=== PATIENT | female | born 1950 | race Caucasian/White ===

== ENCOUNTER → 2024-11-06 10:40 | Outpatient (REF) | payer MEDICARE, OTHER, SELFPAY | LOC: HWRAD 10:40 | PROVIDERS: ATTENDING PHYSICIAN Family Medicine | DX: R05.3 Chronic cough (principal) | CPT/HCPCS: 71046 ==

== ENCOUNTER → 2025-03-28 09:39 | Outpatient (REF) | payer MEDICARE, OTHER, SELFPAY ==
[2025-03-28 10:40] LABS: % Basophils 1.2 % (0-2); % Eosinophils 4.8 % (0-6); % Immature Granulocytes 0.3 % (0-0.5); % Lymphocytes 35.8 % (20.5-51.1); % Monocytes 9.2 % (1.7-9.3); % Neutrophils 48.7 % (42.2-75.2); Absolute Basophils 0.1 10^3/uL (0-0.2); Absolute Eosinophils 0.3 10^3/uL (0-0.7); Absolute Lymphocytes 2.1 10^3/uL (1.2-3.4); Absolute Monocytes 0.5 10^3/uL (0.1-0.6); Absolute Neutrophils 2.8 10^3/uL (1.4-6.5); Hematocrit 42.8 % (37.0-47.0); Hemoglobin 14.2 g/dL (12.0-16.0); Mean Corp Hgb Conc. 33.2 g/dL (33.0-37.0); Mean Corpuscular Volume 87.5 fL (81.0-99.0); Mean Platelet Volume 10.1 fL (7.4-10.4); Nucleated Red Blood Cells % 0 %; Platelet Count 206 10^3/uL (130-400); Red Blood Cell Count 4.89 10^6/uL (4.20-5.40); Red Cell Dist. Width 13.5 % (11.5-14.5); White Blood Cell Count 5.8 10^3/uL (4.8-10.8)
[2025-03-28 11:36] LABS: ALT (SGPT) 24 U/L (0-35); AST (SGOT) 27 U/L (14-36); Albumin 4.7 g/dl (3.5-5.0); Alkaline Phosphatase 76 U/L (38-126); Blood Urea Nitrogen 18 mg/dl (7-17); Calcium 9.6 mg/dl (8.4-10.2); Carbon Dioxide 30 mmol/L (22-30); Chloride 104 mmol/L (98-107); Glucose 99 mg/dl (70-99); HDL Cholesterol 57 mg/dl; LDL Cholesterol, Calculated 184 mg/dl; Potassium 4.5 mmol/L (3.5-5.1); Sodium 142 mmol/L (135-145); Total Bilirubin 0.7 mg/dl (0.2-1.3); Total Cholesterol 268 mg/dl (50-199); Total Protein 7.4 g/dl (6.3-8.2); Triglyceride 137 mg/dl (10-149); Very Low Density Lipoprotein 27 mg/dl (0-30); eGFR > 60.00
== END ==
LOC: REG 09:39
PROVIDERS: ATTENDING PHYSICIAN Family Medicine
DX: E78.00 Pure hypercholesterolemia, unspecified (principal); R79.82 Elevated C-reactive protein (CRP); M81.0 Age-related osteoporosis without current pathological fracture; R79.9 Abnormal finding of blood chemistry, unspecified
CPT/HCPCS: 36415; 80053; 80061; 85025

== ENCOUNTER 2025-05-24 11:21 | Emergency (ER) | payer MEDICARE, OTHER, SELFPAY ==
[2025-05-24 11:23] VITALS: BP 141/81
--- NOTE | 2025-05-24 13:17 | ED.MUSCINJ ---
HPI-Injury
General
Chief Complaint: Fall
Time Seen by Provider: 05/24/25 13:02
History of Present Illness-Injury
Initial Injury comments:
Patient is a 75-year-old female here today for evaluation after she sustained a mechanical fall tripping over a curb earlier today. She reports striking her face including the right cheek as well as falling on her outstretched right hand/wrist.
She endorses pain primarily laterally along the hand. She is able to move her fingers but endorses pain when doing so. Unknown last tetanus vaccination.
Past History
Past History
ED Past Medical History: None
ED Past Surgical History: Gynecological (Tubal ligation) and Other (Right breast lumpectomy)
Social History
Tobacco: Smoker
Alcohol: None
Personal:
Living: with family
Employment: Retired
Family History
Family History: Other (Noncontributory)
Review of Systems
Review of Systems
All Other Systems: ROS reviewed and negative except as documented in HPI and ROS
Phy Exam
Physical Exam
Physical Exam:
GENERAL: Alert , in no apparent distress
EYE: pupils equal round and reactive to light, extraocular movements intact
NECK: Supple
ENT: o/p clr, mmm.
NEUROLOGICAL: Alert and oriented, no focal neuro deficits, moving all extremities, normal sensation and motor
SKIN: Warm and dry, superficial abrasion noted along the right cheek
MUSCULOSKELETAL: Tenderness to palpation with swelling and ecchymosis noted along the lateral aspect of the right hand along the 4th and 5th fingers
PSYCH: Normal and appropriate interaction.
Injury Course
Orders/Labs/Results
Orders:
Orders
05/24/25 11:27
CR Wrist - Right Min 3 Views Urgent
Comment:
Reason For Exam: Injury
05/24/25 11:34
CR Hand - Right Min 3 Views Urgent
Comment:
Reason For Exam: Injury
Procedures
Splinting/Sling Placement
Right Hand:
Procedure completed by: Farhan Vargas PA-C
Pre-splint extermity exam: neurovascular intact
Type of splint: sabino wrap and ulnar gutter
Splint material: fiberglass
Splint checked by provider?: Yes
Normal distal neurovascular exam?: Yes
MDM/Problems Addressed
Differential Diagnosis Includes:
Patient is a 75-year-old female here today for evaluation after she sustained a mechanical fall. Overall, patient appears well. On examination the patient has a superficial abrasion noted along the right cheek. No evidence of ocular involvement or
ocular injury. She also has tenderness to palpation with swelling and ecchymosis noted along the lateral aspect of the right hand along the 4th and 5th fingers. There also appears to be lateral displacement of the 4th and 5th fingers. Patient
neurovascularly intact. X-rays were obtained of the right hand which revealed evidence of a fourth and fifth metacarpal fracture. Regarding the patient's facial trauma, she is neurologically intact. I recommended a tetanus vaccination but the
patient declined. I also recommended CT imaging of the maxillofacial region but she declined this as well. Risks discussed. Patient placed in an ulnar gutter splint and we discussed fracture care and orthopedic follow-up. Recommend supportive
measures and close follow-up. All questions answered. Stable for discharge.
*Pulse Oximetry
SaO2: 97
Oxygen Mode of Delivery: Room air
Patient hypoxic: no
*Critical Care Note
Total Time (30-74mins, 75-104mins- exclusive of procedures): Not Applicable
ED Attending Note
-
Portions of this chart may have been created with voice recognition software.� Occasional wrong word or��sound alike� substitutions may have occurred due to the inherent limitations of voice recognition software.
Discharge Plan
Departure
Patient Disposition: Home (Routine Discharge)
Date of Disposition: 05/24/25
Time of Disposition: 13:26
Patient with high blood pressure during this ER visit?: Yes
Condition: Fair
Discharge Problem:
Fall, Abrasion of face, Fracture of base of fifth metacarpal bone of right hand, Fracture of base of fourth metacarpal bone of right hand
Instructions: Hand Fracture ED
Prescriptions:
No Action
prednisone 50 MG tablet
50 mg PO DAILY Qty: 5 0RF
albuterol sulfate [Proventil HFA] 90 MCG/PUFF HFA aerosol inhaler
2 puff inhalation QIDPRN PRN (Reason: cough, wheezing) Qty: 1 0RF
Rx Instructions:
please dispense with spacer and instruct in it's use. thanks!
codeine-guaifenesin [Guaiatussin AC] 10 ML liquid
10 ml PO Q6HPRN PRN (Reason: cough) Qty: 240 0RF
Referrals:
Caden Diaz MD [Active, Orthopedics] - Follow up in 1 week
Activity Restrictions/Additional Instructions:
You were seen today after you suffered a fall.
Your x-ray reveals evidence of a broken bone along your right hand.
Remain in the splint. Rest. Ice the area. Take [id number] ibuprofen and Tylenol as directed as needed.
Follow-up with orthopedic specialists as an outpatient within the next 7 days for close reevaluation.
Return for any new, worsening, or concerning symptoms.
Interventions
Interventions:
ED-Musculoskeletal Assessment Last Done: 05/24/25 12:04
ED- Neurological Assessment Last Done: 05/24/25 12:03
ED-Skin Assessment Last Done: 05/24/25 12:03
Discharge Date and Time
Print Language: LITHUANIAN
== END 2025-05-24 13:44 | disposition home or self-care (01) ==
LOC: EMR 11:21
PROVIDERS: EMERGENCY PHYSICIAN Emergency Medicine; FAMILY PHYSICIAN Family Medicine
DX: S00.81XA Abrasion of other part of head, initial encounter (principal); S62.314A Displaced fracture of base of fourth metacarpal bone, right hand, initial encounter for closed fracture; S62.316A Displaced fracture of base of fifth metacarpal bone, right hand, initial encounter for closed fracture; W19.XXXA Unspecified fall, initial encounter; F17.200 Nicotine dependence, unspecified, uncomplicated; Z98.51 Tubal ligation status
CPT/HCPCS: 99283; 29125; 73110; 73130

== ENCOUNTER 2025-06-03 06:25 | Day surgery (SDC) | payer MEDICARE, OTHER, SELFPAY ==
[2025-06-03] VITALS (9 sets, daily range): BP systolic 114–148; BP diastolic 64–75
[2025-06-03] MEDS: TYLENOL 1000 MG PO (12:20)
[2025-06-03] MEDS: NORMOSOL-R/PLASMALYTE-A 1000 IV (12:37)
[2025-06-03] MEDS: DILAUDID 0.5 MG IV (14:00)
[2025-06-03] MEDS: DILAUDID 0.25 MG IV (14:15)
== END 2025-06-03 15:35 | disposition home or self-care (01) ==
LOC: SDS 06:25
PROVIDERS: ATTENDING PHYSICIAN Orthopaedic Surgery
DX: S62.394A Other fracture of fourth metacarpal bone, right hand, initial encounter for closed fracture (principal); S62.316A Displaced fracture of base of fifth metacarpal bone, right hand, initial encounter for closed fracture; W19.XXXA Unspecified fall, initial encounter
CPT/HCPCS: 26608 ×2; 93005; C1713